=== PATIENT | female | born 2000 | race Caucasian/White ===

== ENCOUNTER 2024-03-20 12:12 | Outpatient (RCR) | payer OTHER, SELFPAY ==
--- NOTE | 2024-03-21 09:27 | PC.NURSE ---
Dionne did not show up this morning. I called and spoke to Dionne. She stated she unfortunately is not able to make it to the program today as she has an emergency she has to attend to. She stated her car was repossessed last night and she is going to the social security office today to apply for financial benefits. She apologized. Stated she is safe and plans on coming to the program on Sunday.
== END 2024-03-20 23:59 | disposition home or self-care (01) ==
LOC: HO.PHPA 12:12
PROVIDERS: Visit Provider Psychiatry & Neurology Psychiatry
DX: F33.3 Major depressive disorder, recurrent, severe with psychotic symptoms (principal); F41.1 Generalized anxiety disorder; F43.10 Post-traumatic stress disorder, unspecified
CPT/HCPCS: 90791

== ENCOUNTER 2024-08-11 11:45 | Outpatient (RCR) | payer OTHER, SELFPAY ==
[2024-08-06 09:40] VITALS: BMI 18.6
[2024-08-06 09:41] VITALS: BP 100/58; PULSE 96; TEMP 36.7
--- NOTE | 2024-08-06 15:31 | PC.ADMIT ---
Patient is a 24 year old single female who self referred to [facility] d/t isolating, spending a lot of time in bed, and having difficulty with ADLS. Reports having some feelings of depression. She recently was discharged from inpatient LOC at [facility] from 07/05- with step down to [facility] LOC from 07/24-07/29/24. According to [facility] paperwork patient arrived to the hospital via EMS after father found patient on the floor stating, she wants to end it all . Reported hearing AH-unable to repeat or describe; patient declined SI/HI at that time. Stated her name was Gina during triage however was calm and cooperative. Patient has a history of Schizophrenia and recent admission to another facility. Father claims patient has been drinking and smoking marijuana. Patient is alert and oriented x4. She is calm and cooperative. Thoughts are clear and logical. She reports that she struggles with her ADLs and getting out of bed. She wants to work on continuing stabilization of her mental health while at [facility]. She also reports severe social anxiety that prevents her from going to places including the grocery store. She is currently living with her mother. Patient reports her Mom, dad, sister, friend Dasia are supportive along with her therapist. Patient denied SI, no HI. She was given a copy of her safety plan if needed. She reports that she has been smoking marijuana 1-2 puffs a few days a week, stated she wants to cut down on her use. Educated patient about the short and correction effects of marijuana on physical and mental health. Medications reconciled with [facility] and [facility] paperwork that patient brought to [facility] for review. Patient reports she is taking her medications as prescribed.
--- NOTE | 2024-08-07 15:26 | HO.PHP ---
Client's case was opened and reviewed in team.
--- NOTE | 2024-08-07 23:31 | HO.PS.ADMBH ---
HPI Date of Service: 08/07/24 Chief Complaint: bipolar,schizophrenia,depression,anxiety,YEIMY Sources of Information: patient interviewed, chart reviewed and crisis/core team assessment reviewed HPI Narrative: Patient is a 24 year old female with history of Bipolar disorder and schizophrenia, recently diagnosed with Schizoaffective Disorder, who was hospitalized at [facility] last month for nearly 20 days for acute decompensation marked by SI and psychosis. She was stepped down to respite for 5 days and was discharged on 07/29. She reports having been IPLOC for suicidal thoughts, denies any history of attempts. She reports doing well since hospital and respite stays. I've been doing good. It's really good being back home. Things are good there. She attributes some of her trouble to difficulties tolerating medication - leading to poor medication compliance. SHe admits she has some conflicts around taking medications. I'm holistic. I was trying to use ashwanghanda, and melatonin but admits these were unable to manage her condition. She notes being first diagnosed with schizophrenia in 2016 [facility] Medical History (Updated 08/11/24 @ 06:58 by Doreen Jackson MD) Celiac disease Asthma Underweight Shortness of breath Nausea and vomiting Allergic rhinitis Chronic abdominal pain Diagnostics Vital Signs (24Hr): BMI result Body Mass Index 18.6 Meds/Allergies Meds Home Medications ?Medication ?Instructions ?Recorded ?Confirmed ?Type docusate sodium 100 mg capsule 100 mg PO BID 08/06/24 08/06/24 History hydroxyzine HCl 50 mg tablet 50 mg PO Q6H anxiety 08/06/24 08/06/24 History lactase 3,000 unit tablet (Lactaid) See Rx Instructions .Route .COMPLEX 08/06/24 08/06/24 History melatonin 3 mg tablet 6 mg PO DAILY Insomnia 08/06/24 08/06/24 History multivitamin 1 tab PO DAILY 08/06/24 08/06/24 History olanzapine 10 mg disintegrating 10 mg PO DAILY 08/06/24 08/06/24 History tablet olanzapine 20 mg disintegrating 20 mg PO BEDTIME 08/06/24 08/06/24 History tablet polyethylene glycol 3350 17 gram 17 g PO DAILY 08/06/24 08/06/24 History oral powder packet psyllium 3.4 gram/5.8 gram oral 3.4 g PO DAILY 08/06/24 08/06/24 History powder trazodone 50 mg tablet 50 mg PO BEDTIME PRN Insomnia 08/06/24 08/06/24 History Allergies Allergies Allergy/AdvReac Type Severity Reaction Status Date / Time wheat [WHEAT] Allergy Unknown GI issues, Unverified 08/06/24 09:40 vomiting, nausea, stomach pain. lamotrigine [From Lamictal] Allergy Rash Verified 03/21/24 09:05 Mental Status Exam Mental Status Exam Narrative: mseAlert, oriented, in no acute distress. Calm, cooperative, engaged. No psychomotor agitation or neurovegetative retardation. Eye contact maintained. Mood anxious, affect variable, mood congruent. Speech normal. Thought process linear, coherent. Thought content related to stressors, denies any hopelessness or SI. Denies any aggressive ideation or HI. No paranoia or delusional content elicited. No evidence of psychosis. Insight and judgment - fair but adequate. Assessment & Plan Assessment & Plan (1) Schizoaffective disorder, bipolar type: Status: Acute Code(s): F25.0 - Schizoaffective disorder, bipolar type (2) Generalized anxiety disorder: Status: Acute Code(s): F41.1 - Generalized anxiety disorder (3) PTSD (post-traumatic stress disorder): Status: Acute Code(s): F43.10 - Post-traumatic stress disorder, unspecified Plan Admit to [facility] VS reviewed: abrefile, BP ? bpm continue other regular medications? Routine lab work ordered as indicated EKG, routine for baseline QTc for medication considerations as indicated UDS as indicated [facility] reviewed Continue to monitor as per protocol Certification I certify that partial hospital treatment is medically necessary due to the symptoms and problems resulting from the patient's mental illness and the failure to treat the patient at the partial hospital level of care would likely result in the patient requiring inpatient psychiatric care which could not be prevented at a less intensive level of care. Time Spent With Patient Time: Total time managing care of this patient today ____ minutes.
--- NOTE | 2024-08-12 14:26 | HO.PHP ---
PHP Admin, Felicia, informed the team that Dionne will not be in attendance to program today due to being sick. No safety concerns were reported.
--- NOTE | 2024-08-13 11:42 | HO.PHP ---
Dionne called out of PHP again today due to illness, left a voicemail. Pt was contacted back by machine sign writer at roughly 12pm to check in. Pt stated she has been throwing up, thinks she may have a stomach bug but unsure. Pt was clear, alert, oriented. Stated she is hoping she will feel better by tomorrow, plans to return tomorrow morning to resume programming. Pt agreed to call in the morning if she is still not feeling well. No safety concerns.
== END 2024-08-11 23:59 | disposition home or self-care (01) ==
LOC: HO.PHPA 11:45
PROVIDERS: Visit Provider Psychiatry & Neurology Psychiatry
DX: F25.0 Schizoaffective disorder, bipolar type (principal); F41.1 Generalized anxiety disorder; F43.10 Post-traumatic stress disorder, unspecified
CPT/HCPCS: 90791; 90853